=== PATIENT | female | born 1960 | race Caucasian/White ===

== ENCOUNTER → 2018-01-27 13:02 | Outpatient (CLI) | payer OTHER | END | disposition home or self-care (01) | LOC: D.LAB 01-20 13:00 → D.RT 01-20 14:00 → D.LAB 08:00 | DX: J44.9 Chronic obstructive pulmonary disease, unspecified (principal) ==

== ENCOUNTER → 2018-03-17 14:49 | Outpatient (CLI) | payer OTHER ==
[~2018-03-17 14:49] MED LIST: KLONOPIN1 MG PO; NORCO 10-325 TA1 TAB PO; ORENCIA250 MG/10 SC; TRELEGY ELLIPTA INH; VOLTAREN75 MG PO; WELLBUTRIN XL150 M1 PO; ZANAFLEX4 MG PO
[2018-05-02 08:26] VITALS: BMI 23.9
== END | disposition home or self-care (01) ==
LOC: D.CT 14:49
DX: R22.2 Localized swelling, mass and lump, trunk (principal)

== ENCOUNTER 2018-05-02 06:39 | Outpatient (CLI) | payer OTHER ==
[~2018-05-02] VITALS: Ht 160 cm; Wt 61.4 kg
[2018-05-02 06:59] LABS: BASOPHILS 0.3 % (0-2); EOSINOPHILS 1.1 % (0-7); HEMATOCRIT 49.7 % (36.0-48.0); HEMOGLOBIN 16.9 g/dL (12-16); IMMATURE GRANULOCYTES 0.2 % (0-5); LYMPHOCYTES 26.6 % (15-50); MCH 31.2 pg (26.0-34.0); MCV 91.7 fL (80.0-100.0); MEAN PLATELET VOLUME 8.5 fL (7.4-10.4); MONOCYTES 5.8 % (2-11); PLATELET COUNT 290 10x3/uL (130-400); RBC 5.42 10x6/uL (4.00-5.40); RDW 13.5 % (11.5-14.5); WBC 11.6 10x3/uL (4.8-10.8)
[2018-05-02 07:09] LABS: INR 0.96 (0.85-1.17); PROTIME 12.4 SECONDS (11.6-15.0)
[2018-05-02 07:13] LABS: CALC OSMOLALITY 276 mosm/kg (275-300); CALCIUM 9.4 mg/dL (8.5-10.1); CARBON DIOXIDE 27.4 mmol/L (21.0-32.0); CHLORIDE - SERUM 99 mmol/L (98-107); CREATININE - SERUM 0.8 mg/dL (0.6-1.3); GLUCOSE 108 mg/dL (74-106); POTASSIUM - SERUM 3.9 mmol/L (3.5-5.1); SODIUM 138 mmol/L (136-145); UREA NITROGEN 12 mg/dL (7-18); eGFR NON AFRICAN AMERICAN 78 mL/min (90-120)
[2018-05-02] MEDS ORDERED: ORENCIA250 MG/10 SC ×2 (07:59→08:00)
[2018-05-02] MEDS ORDERED: KLONOPIN1 MG PO (08:01)
[2018-05-02] MEDS ORDERED: WELLBUTRIN XL150 M1 PO (08:02)
[2018-05-02] MEDS ORDERED: VOLTAREN75 MG PO (08:02)
[2018-05-02] MEDS ORDERED: NORCO 10-325 TA1 TAB PO (08:03)
[2018-05-02] MEDS ORDERED: ZANAFLEX4 MG PO (08:03)
[2018-05-02] MEDS ORDERED: TRELEGY ELLIPTA INH (08:06)
[2018-05-02 08:26] VITALS: BP 115/91; Ht 160 cm; Wt 61.4 kg
== END 2018-05-02 12:30 | disposition home or self-care (01) ==
LOC: D.SP 06:39
PROVIDERS: Radiology Vascular & Interventional Radiology
DX: R22.2 Localized swelling, mass and lump, trunk (principal); Z01.812 Encounter for preprocedural laboratory examination